=== PATIENT | male | born 1970 | race Caucasian/White ===

== ENCOUNTER 2024-12-17 20:08 | Inpatient (IN) | payer OTHER ==
[~2024-12-17] VITALS: Ht 172.7 cm; Wt 99.8 kg
[2024-12-17] MEDS: IV NS 0.9% 1,000 ML BAG IV ONE (22:00)
[2024-12-17 22:24] LABS: BASOPHILS % (AUTO) 0.3 % (0.0-2.0); EOSINOPHILS # (AUTO) 0.2 K/uL (0.0-0.7); EOSINOPHILS % (AUTO) 2.9 % (0.0-6.0); HEMATOCRIT 40 % (39-51); HEMOGLOBIN 13.8 g/dL (13.5-17.5); LYMPHOCYTES # (AUTO) 1.8 K/uL (0.8-4.8); LYMPHOCYTES % (AUTO) 21.6 % (20.0-44.0); MEAN CORPUSCULAR HEMOGLOBIN 34 PG (26.0-33.0); MEAN CORPUSCULAR HGB CONC 35 g/dl (31.0-36.0); MEAN CORPUSCULAR VOLUME 99 fL (80-96); MONOCYTES # (AUTO) 0.9 K/uL (0.1-1.30); MONOCYTES % (AUTO) 11.1 % (2.0-12.0); NEUTROPHILS # (AUTO) 5.3 K/uL (1.8-8.9); NEUTROPHILS % (AUTO) 64.1 % (43.0-81.0); PLATELET COUNT (AUTO) 168 K/uL (150-450); RED BLOOD CELL COUNT(AUTO) 4.03 MIL/uL (4.5-6.0); RED CELL DISTRIBUTION WIDTH 14.2 % (11.5-15.0); WHITE BLOOD COUNT (AUTO) 8.2 K/uL (4.3-11.0)
[2024-12-17 22:27] LABS: SITE, VBG Other; VBG BASE EXCESS -0.1 mmol/L (-2.0-3.0); VBG COHb 2.3 % (0.5-1.5); VBG HCO3 23.9 mmol/L (22.0-29.0); VBG MetHb 0.2 % (0.5-1.5); VBG O2Hb 79.1 % (0-79); VBG OXYGEN SATURATION 81.1 % (60.0-85.0); VBG PCO2 37.2 mmHg (38.0-54.0); VBG PH 7.426 (7.320-7.430); VBG PO2 45.9 mmHg (23.0-48.0)
[2024-12-17 22:30] LABS: CALCIUM, SERUM 9.6 mg/dL (8.5-10.1); CREATININE 1.3 mg/dL (0.6-1.3); POTASSIUM 3.7 mmol/L (3.5-5.1)
[2024-12-17] MEDS: INSULIN REGULAR, HUMAN 100 UNIT/ML 10 ML VIAL IV ONE (22:30)
[2024-12-17] MEDS ORDERED: VANCOMYCIN 1 GM /D5W 250 ML PB IV ONE (22:30)
[2024-12-17] MEDS ORDERED: INSULIN REGULAR, HUMAN 100 UNIT/ML 10 ML VIAL ONE (22:31)
[2024-12-17] MEDS: VANCOMYCIN 1 GM in IV D5W 250 ML IV ONE (22:37)
[2024-12-17] MEDS ORDERED: MORPHINE SULFATE INJ 2 MG/ML DISP.SYRIN ONE (23:21)
[2024-12-17] MEDS: MORPHINE SULFATE INJ 2 MG/ML DISP.SYRIN IV ONE (23:27)
[2024-12-17 23:30] LABS: APPEARANCE,URINE CLEAR (CLEAR); BILIRUBIN,URINE NEGATIVE (NEGATIVE); BLOOD, URINE NEGATIVE Ery/uL (NEGATIVE); COLOR,URINE YELLOW (YELLOW); KETONES,URINE NEGATIVE (NEGATIVE); LEUKOCYTE ESTERASE ,URINE NEGATIVE (NEGATIVE); NITRITE, URINE NEGATIVE (NEGATIVE); PH,URINE 5.5 (5.0-8.0); PROTEIN,URINE NEGATIVE (NEGATIVE); UGLUCOSE 3+ mg/dL (NEGATIVE); UROBILINOGEN,URINE 0.2 EU/dL (0.2)
[2024-12-17 23:54] LABS: ADD URINE CULTURE NO; BACTERIA,URINE Few /HPF (None Seen); RBC,URINE 0-2 /HPF (0-2); SQUAMOUS EPITHELIAL CELL,UR Few /HPF (None Seen); WBC,URINE 0-2 /HPF (0-3)
[2024-12-18] VITALS (7 sets, daily range): BP systolic 129–146; BP diastolic 81–99; TEMP 97.9–98.2; O2SAT 96–98
[2024-12-18] MEDS ORDERED: ACETAMINOPHEN 325 MG TABLET PO PRN (01:00)
[2024-12-18] MEDS ORDERED: DEXTROSE 50%-WATER 50 ML DISP.SYRIN IV PRN (01:00)
[2024-12-18] MEDS ORDERED: ONDANSETRON HCL/PF 4 MG/2 ML VIAL IVP PRN (01:00)
[2024-12-18] MEDS: BLOOD SUGAR DIAGNOSTIC 1 EACH STRIP IN SCH (01:00)
[2024-12-18] MEDS: ENOXAPARIN SODIUM 40 MG/0.4 ML DISP.SYRIN SQ SCH (01:00)
[2024-12-18] MEDS: IV NS 0.9% 1,000 ML IV PRN (01:55)
[2024-12-18] MEDS ORDERED: ENOXAPARIN SODIUM 40 MG/0.4 ML DISP.SYRIN SQ ONE (01:58)
[2024-12-18] MEDS: INSULIN GLARGINE, 100 UNIT/ML CARTRIDGE SQ SCH ×2 (03:05→21:53)
[2024-12-18] MEDS ORDERED: DIAZEPAM 5 MG TABLET PO PRN ×2 (05:00→06:00)
[2024-12-18] MEDS: MORPHINE SULFATE INJ 2 MG/ML DISP.SYRIN IV PRN (05:11)
[2024-12-18] MEDS: INSULIN REGULAR, HUMAN 100 UNIT/ML 3 ML VIAL SQ PRN (06:34)
[2024-12-18] MEDS ORDERED: METF-442 PO (09:05)
[2024-12-18] MEDS ORDERED: INSU100I30 SQ (09:05)
[2024-12-18] MEDS ORDERED: PREG200C PO (09:05)
[2024-12-18] MEDS ORDERED: OMEP40CA21 PO (09:05)
[2024-12-18] MEDS ORDERED: VERA120C10 PO (09:05)
[2024-12-18] MEDS ORDERED: ATOR80TA PO (09:05)
[2024-12-18] MEDS ORDERED: CLON0.1T PO (09:05)
[2024-12-18] MEDS ORDERED: MULT-594 PO (09:05)
[2024-12-18] MEDS ORDERED: METH-649 PO (09:05)
[2024-12-18] MEDS ORDERED: ATEN100T PO (09:05)
[2024-12-18] MEDS ORDERED: TRAZ-182 PO (09:05)
[2024-12-18] MEDS ORDERED: INSU100I4 SQ (09:05)
[2024-12-18] MEDS ORDERED: DULO60CA45 PO (09:05)
[2024-12-18] MEDS ORDERED: DIAZ10TA4 PO (09:05)
[2024-12-18] MEDS: MUPIROCIN OINT 2% 22 GM TUBE TP SCH (11:27)
[2024-12-18] MEDS: NEOMY SULF/BACITRAC ZN/POLY 15 GM TUBE TP SCH (11:27)
[2024-12-18] MEDS ORDERED: TRAZODONE 50 MG TABLET PO PRN (14:00)
[2024-12-18] MEDS ORDERED: CLONIDINE HCL 0.1 MG TABLET PO PRN (14:00)
[2024-12-18] MEDS: CEFTRIAXONE 2 G in IV D5W 100 ML IV SCH (15:00)
[2024-12-18] MEDS: VANCOMYCIN 1 GM in IV D5W 250ml IV SCH (15:34)
[2024-12-18] MEDS: PREGABALIN 100 MG CAPSULE PO SCH (16:48)
[2024-12-18] MEDS: METHOCARBAMOL (750MG) 750 MG TABLET PO SCH (16:49)
[2024-12-18] MEDS: DIAZEPAM 5 MG TABLET PO SCH (16:49)
[2024-12-18] MEDS: DULOXETINE HCL 30 MG CAPSULE.DR PO ONE (17:38)
[2024-12-19 06:33] LABS: BASOPHILS % (AUTO) 0.4 % (0.0-2.0); HEMATOCRIT 44 % (39-51); HEMOGLOBIN 14.8 g/dL (13.5-17.5); LYMPHOCYTES % (AUTO) 26.3 % (20.0-44.0); MEAN CORPUSCULAR HEMOGLOBIN 33 PG (26.0-33.0); MEAN CORPUSCULAR HGB CONC 34 g/dl (31.0-36.0); MEAN CORPUSCULAR VOLUME 99 fL (80-96); MONOCYTES % (AUTO) 10.4 % (2.0-12.0); NEUTROPHILS % (AUTO) 57.9 % (43.0-81.0); PLATELET COUNT (AUTO) 150 K/uL (150-450); RED BLOOD CELL COUNT(AUTO) 4.46 MIL/uL (4.5-6.0); RED CELL DISTRIBUTION WIDTH 14.1 % (11.5-15.0); WHITE BLOOD COUNT (AUTO) 6.6 K/uL (4.3-11.0)
[2024-12-19 06:34] LABS: EOSINOPHILS # (AUTO) 0.3 K/uL (0.0-0.7); LYMPHOCYTES # (AUTO) 1.7 K/uL (0.8-4.8); MONOCYTES # (AUTO) 0.7 K/uL (0.1-1.30); NEUTROPHILS # (AUTO) 3.8 K/uL (1.8-8.9)
[2024-12-19 07:05] LABS: CALCIUM, SERUM 8.8 mg/dL (8.5-10.1); CREATININE 0.9 mg/dL (0.6-1.3); MAGNESIUM 1.3 mg/dL (1.8-2.4); POTASSIUM 3.5 mmol/L (3.5-5.1)
[2024-12-19 08:00] VITALS: BP 150/95; TEMP 97.7; O2SAT 97
[2024-12-19] MEDS: VERAPAMIL SR 120 MG TABLET.SA PO SCH (09:00)
[2024-12-19] MEDS: ATORVASTATIN 40 MG TABLET PO SCH (09:00)
[2024-12-19] MEDS: PANTOPRAZOLE 40 MG TABLET.DR PO SCH (09:00)
[2024-12-19] MEDS: ATENOLOL 50 MG TABLET PO SCH (09:00)
[2024-12-19] MEDS: MULTIVITAMINS,THERAGRAN 1 UDTAB TABLET PO SCH (09:00)
[2024-12-19] MEDS: DULOXETINE HCL 30 MG CAPSULE.DR PO SCH (09:00)
[2024-12-19] MEDS: INSULIN GLARGINE, 100 UNIT/ML CARTRIDGE SQ SCH (09:30)
[2024-12-19] MEDS: Magnesium 1GM/D5W 100ML PREMIX 100 ML IV SCH (11:11)
[2024-12-19] MEDS ORDERED: BUPIVACAINE MPF 0.5% W/EPI INJ 30 ML VIAL ONE (12:48)
[2024-12-19] MEDS ORDERED: BUPIVACAINE 0.5 % PF 150 MG/30 ML VIAL ONE (12:48)
[2024-12-19] MEDS ORDERED: LIDOCAINE 1%-EPI 1:100,000 20 ML VIAL ONE (12:48)
[2024-12-19] MEDS ORDERED: ANESTHESIA TRAY IN PYXIS 1 EA TRAY MC ONE (12:48)
[2024-12-19] MEDS ORDERED: LIDOCAINE HCL/MPF 1% 30 ML VIAL IJ ONE (12:49)
[2024-12-19] MEDS ORDERED: ROCURONIUM BROMIDE 50 MG/5 ML ONE (13:53)
[2024-12-19] MEDS ORDERED: FENTANYL PF 100MCG/2ML AMPUL ONE (13:53)
[2024-12-19] MEDS ORDERED: MIDAZOLAM HCL 2 MG/2ML VIAL ONE (13:59)
[2024-12-19] MEDS ORDERED: BACITRACIN ZINC OINT (15 GM) 15 GM TUBE TP ONE (14:28)
[2024-12-19 16:00] VITALS: BP 164/96; TEMP 98.1; O2SAT 97
[2024-12-19] MEDS ORDERED: DOXY-326 PO (16:33)
[2024-12-19] MEDS ORDERED: AMOX-430 PO (16:33)
== END 2024-12-19 17:30 | disposition home or self-care (01) | DRG 623 ==
LOC: ER 20:13 → TELE 12-18 02:03 → MED 12-18 02:31
PROC: 0HRMXK4 Replacement of Right Foot Skin with Nonautologous Tissue Substitute, Partial Thickness, External Approach (ICD-10-PCS; 2024-12-19)
PROC: 0JBQ0ZZ Excision of Right Foot Subcutaneous Tissue and Fascia, Open Approach (ICD-10-PCS; principal; 2024-12-19 14:00)
DX: E11.621 Type 2 diabetes mellitus with foot ulcer (principal); E87.1 Hypo-osmolality and hyponatremia; L03.031 Cellulitis of right toe; L97.519 Non-pressure chronic ulcer of other part of right foot with unspecified severity; I10 Essential (primary) hypertension; E11.40 Type 2 diabetes mellitus with diabetic neuropathy, unspecified; E11.65 Type 2 diabetes mellitus with hyperglycemia; F43.10 Post-traumatic stress disorder, unspecified; F41.9 Anxiety disorder, unspecified; Z88.8 Allergy status to other drugs, medicaments and biological substances
CPT/HCPCS: 36415; 71045-TC; 73660-TC; 80048-TC; 80061-TC; 81001; 82010-TC; 82803-TC; 82962-TC; 83735-TC; 84100-TC; 85025-TC; 85652-TC; 86140-TC; 86850-TC; 87081-TC; A4223; A6403; G0378; J0690; J0696; J1650; J1815; J2250; J2270; J2704; J3010; J3370; J3475; J3490; J7030; J7060

== ENCOUNTER 2024-12-24 16:56 | Inpatient (IN) | payer OTHER ==
[~2024-12-24] VITALS: Ht 172.7 cm; Wt 106.1 kg
[~2024-12-24 16:56] MED LIST: AMOX-430 PO; ATEN100T PO; ATOR80TA PO; CLON0.1T PO; DIAZ10TA4 PO; DOXY-326 PO; DULO60CA45 PO; INSU100I30 SQ; INSU100I4 SQ; METF-442 PO; METH-649 PO; MULT-594 PO; OMEP40CA21 PO; PREG200C PO; TRAZ-182 PO; VERA120C10 PO
[2024-12-24] MEDS ORDERED: ACETAMINOPHEN 325 MG TABLET PO PRN (19:30)
[2024-12-24] MEDS ORDERED: ONDANSETRON HCL/PF 4 MG/2 ML VIAL IVP PRN (19:30)
[2024-12-24] MEDS ORDERED: DEXTROSE 50%-WATER 50 ML DISP.SYRIN IV PRN (19:30)
[2024-12-24] MEDS ORDERED: TRAZODONE 50 MG TABLET PO PRN (19:30)
[2024-12-24] MEDS: INSULIN GLARGINE, 100 UNIT/ML CARTRIDGE SQ SCH (19:30)
[2024-12-24] MEDS ORDERED: VANCOMYCIN 1 GM /D5W 250 ML PB IV ONE (19:56)
[2024-12-24] MEDS ORDERED: DIAZEPAM 5 MG TABLET ONE (19:57)
[2024-12-24 20:02] LABS: BASOPHILS # (AUTO) 0.1 K/uL (0.0-0.2); BASOPHILS % (AUTO) 0.8 % (0.0-2.0); EOSINOPHILS # (AUTO) 0.4 K/uL (0.0-0.7); EOSINOPHILS % (AUTO) 4.9 % (0.0-6.0); HEMATOCRIT 45 % (39-51); HEMOGLOBIN 14.9 g/dL (13.5-17.5); LYMPHOCYTES # (AUTO) 1.5 K/uL (0.8-4.8); LYMPHOCYTES % (AUTO) 20.4 % (20.0-44.0); MEAN CORPUSCULAR HEMOGLOBIN 33 PG (26.0-33.0); MEAN CORPUSCULAR HGB CONC 33 g/dl (31.0-36.0); MEAN CORPUSCULAR VOLUME 100 fL (80-96); MONOCYTES # (AUTO) 0.5 K/uL (0.1-1.30); MONOCYTES % (AUTO) 7.1 % (2.0-12.0); NEUTROPHILS % (AUTO) 66.8 % (43.0-81.0); PLATELET COUNT (AUTO) 208 K/uL (150-450); RED BLOOD CELL COUNT(AUTO) 4.51 MIL/uL (4.5-6.0); RED CELL DISTRIBUTION WIDTH 14.1 % (11.5-15.0); WHITE BLOOD COUNT (AUTO) 7.5 K/uL (4.3-11.0)
[2024-12-24] MEDS: VANCOMYCIN 1 GM in IV D5W 250 ML IV ONE (20:04)
[2024-12-24] MEDS: DIAZEPAM 5 MG TABLET PO ONE (20:04)
[2024-12-24 20:14] LABS: CALCIUM, SERUM 9.6 mg/dL (8.5-10.1); CREATININE 1.1 mg/dL (0.6-1.3); POTASSIUM 4.4 mmol/L (3.5-5.1)
[2024-12-24 20:15] LABS: LACTIC ACID 1.7 mmol/L (0.4-2.0)
[2024-12-24 20:19] LABS: ALBUMIN 4.4 g/dL (3.4-5.0); BILIRUBIN,DIRECT 0.1 mg/dL (0.0-0.2); BILIRUBIN,TOTAL 0.5 mg/dL (0.2-1.0); TOTAL PROTEIN, SERUM 8.6 g/dL (6.4-8.2)
[2024-12-24] MEDS ORDERED: HEPARIN SODIUM, PORCINE 5000 UNITS/1 ML VIAL ONE (21:33)
[2024-12-24] MEDS: HEPARIN SODIUM, PORCINE 5000 UNITS/1 ML VIAL SQ SCH (21:42)
[2024-12-24] MEDS: VANCOMYCIN HCL 1.25 GM in IV D5W 250 ML IV ONE (22:18)
[2024-12-24 22:23] VITALS: BP 143/89; TEMP 97.7; O2SAT 98
[2024-12-24 22:30] VITALS: BP 143/89; TEMP 97.7; O2SAT 98
[2024-12-24] MEDS: BLOOD SUGAR DIAGNOSTIC 1 EACH STRIP VI SCH (23:59)
[2024-12-25] MEDS: PREGABALIN 100 MG CAPSULE PO SCH ×2 (00:01→09:00)
[2024-12-25] MEDS: *INSULIN REGULAR(HUMULIN R)HUM 100 UNIT/ML VIAL SQ PRN (00:10)
[2024-12-25] MEDS: MORPHINE SULFATE INJ 2 MG/ML DISP.SYRIN IV PRN (00:12)
[2024-12-25 08:00] VITALS: BP 166/98; TEMP 98.2; O2SAT 98
[2024-12-25 08:01] LABS: ALBUMIN 3.9 g/dL (3.4-5.0); BILIRUBIN,TOTAL 0.4 mg/dL (0.2-1.0); CALCIUM, SERUM 9.7 mg/dL (8.5-10.1); CREATININE 0.9 mg/dL (0.6-1.3); PHOSPHORUS 3.3 mg/dL (2.5-4.9); POTASSIUM 3.9 mmol/L (3.5-5.1); TOTAL PROTEIN, SERUM 7.7 g/dL (6.4-8.2)
[2024-12-25 08:07] LABS: BASOPHILS % (AUTO) 0.8 % (0.0-2.0); EOSINOPHILS # (AUTO) 0.5 K/uL (0.0-0.7); EOSINOPHILS % (AUTO) 7.9 % (0.0-6.0); HEMATOCRIT 45 % (39-51); LYMPHOCYTES # (AUTO) 1.6 K/uL (0.8-4.8); LYMPHOCYTES % (AUTO) 26.4 % (20.0-44.0); MEAN CORPUSCULAR HEMOGLOBIN 33 PG (26.0-33.0); MEAN CORPUSCULAR HGB CONC 33 g/dl (31.0-36.0); MEAN CORPUSCULAR VOLUME 99 fL (80-96); MONOCYTES # (AUTO) 0.7 K/uL (0.1-1.30); MONOCYTES % (AUTO) 11.6 % (2.0-12.0); NEUTROPHILS # (AUTO) 3.3 K/uL (1.8-8.9); NEUTROPHILS % (AUTO) 53.3 % (43.0-81.0); PLATELET COUNT (AUTO) 211 K/uL (150-450); RED CELL DISTRIBUTION WIDTH 14.2 % (11.5-15.0); WHITE BLOOD COUNT (AUTO) 6.1 K/uL (4.3-11.0)
[2024-12-25] MEDS: VERAPAMIL SR 120 MG TABLET.SA PO SCH (09:08)
[2024-12-25] MEDS: DULOXETINE HCL 30 MG CAPSULE.DR PO SCH (09:08)
[2024-12-25] MEDS: DIAZEPAM 5 MG TABLET PO SCH (09:09)
[2024-12-25] MEDS: ATENOLOL 50 MG TABLET PO SCH (09:10)
[2024-12-25] MEDS: ATORVASTATIN 40 MG TABLET PO SCH (09:10)
[2024-12-25] MEDS: MUPIROCIN OINT 2% 22 GM TUBE TP SCH (10:43)
[2024-12-25] MEDS: VANCOMYCIN HCL 1.25 GM in IV D5W 250 ML IV SCH (10:43)
[2024-12-25 16:00] VITALS: BP 145/100; TEMP 98.4; O2SAT 96
[2024-12-25] MEDS: INSULIN REGULAR, HUMAN 100 UNIT/ML 3 ML VIAL SQ PRN (17:56)
[2024-12-25 20:00] VITALS: BP 108/76; TEMP 97.9; O2SAT 96
[2024-12-26 08:00] VITALS: BP 183/84; TEMP 98.2; O2SAT 98
[2024-12-26 08:51] LABS: CALCIUM, SERUM 8.6 mg/dL (8.5-10.1); CREATININE 0.8 mg/dL (0.6-1.3); POTASSIUM 3.7 mmol/L (3.5-5.1)
[2024-12-26] MEDS: FLUCONAZOLE (100 MG) 100 MG TABLET PO ONE (14:51)
[2024-12-26] MEDS: HYDROMORPHONE 1 MG/1 ML DISP.SYRIN IV PRN (14:51)
[2024-12-26 16:00] VITALS: BP 147/97; TEMP 98.2; O2SAT 98
[2024-12-26] MEDS: HYDROCORTISONE OINT 1% 28.35 GM TUBE TP SCH (16:58)
[2024-12-26] MEDS: CLOTRIMAZOLE 1% 15 GM TUBE TP SCH (16:59)
[2024-12-26] MEDS: METHOCARBAMOL (750MG) 750 MG TABLET PO SCH (17:49)
[2024-12-26] MEDS: HYDROCODONE/APAP 10/325MG TABLET PO PRN (19:58)
[2024-12-26 20:00] VITALS: BP_SYST 154; BP_SYST 168; BP_DIAS 87; BP_DIAS 91; TEMP 98.2; O2SAT 96
[2024-12-26 22:00] VITALS: BP 154/91
[2024-12-27 07:45] LABS: BASOPHILS # (AUTO) 0.1 K/uL (0.0-0.2); BASOPHILS % (AUTO) 0.9 % (0.0-2.0); EOSINOPHILS # (AUTO) 0.4 K/uL (0.0-0.7); EOSINOPHILS % (AUTO) 6.4 % (0.0-6.0); HEMATOCRIT 45 % (39-51); HEMOGLOBIN 14.9 g/dL (13.5-17.5); LYMPHOCYTES # (AUTO) 1.9 K/uL (0.8-4.8); LYMPHOCYTES % (AUTO) 30.6 % (20.0-44.0); MEAN CORPUSCULAR HEMOGLOBIN 33 PG (26.0-33.0); MEAN CORPUSCULAR HGB CONC 34 g/dl (31.0-36.0); MEAN CORPUSCULAR VOLUME 97 fL (80-96); MONOCYTES # (AUTO) 0.6 K/uL (0.1-1.30); MONOCYTES % (AUTO) 9.7 % (2.0-12.0); NEUTROPHILS # (AUTO) 3.2 K/uL (1.8-8.9); NEUTROPHILS % (AUTO) 52.4 % (43.0-81.0); PLATELET COUNT (AUTO) 196 K/uL (150-450); RED BLOOD CELL COUNT(AUTO) 4.58 MIL/uL (4.5-6.0); RED CELL DISTRIBUTION WIDTH 14.1 % (11.5-15.0); WHITE BLOOD COUNT (AUTO) 6.2 K/uL (4.3-11.0)
[2024-12-27 08:31] VITALS: BP 158/90; TEMP 98.6; O2SAT 100
[2024-12-27 09:38] LABS: CALCIUM, SERUM 9.2 mg/dL (8.5-10.1); CREATININE 0.8 mg/dL (0.6-1.3); MAGNESIUM 2.2 mg/dL (1.8-2.4); PHOSPHORUS 3.5 mg/dL (2.5-4.9); POTASSIUM 4.6 mmol/L (3.5-5.1)
[2024-12-27 16:00] VITALS: BP 157/78; TEMP 98.3; O2SAT 97
[2024-12-28 08:00] VITALS: BP 159/89; TEMP 97.9; O2SAT 95
[2024-12-28 09:07] LABS: CALCIUM, SERUM 9.6 mg/dL (8.5-10.1); CREATININE 1.1 mg/dL (0.6-1.3); MAGNESIUM 1.7 mg/dL (1.8-2.4); PHOSPHORUS 3.5 mg/dL (2.5-4.9); POTASSIUM 4.5 mmol/L (3.5-5.1)
[2024-12-28 09:10] LABS: BASOPHILS # (AUTO) 0.1 K/uL (0.0-0.2); BASOPHILS % (AUTO) 1.3 % (0.0-2.0); EOSINOPHILS # (AUTO) 0.4 K/uL (0.0-0.7); EOSINOPHILS % (AUTO) 5.4 % (0.0-6.0); HEMATOCRIT 41 % (39-51); HEMOGLOBIN 13.9 g/dL (13.5-17.5); LYMPHOCYTES # (AUTO) 1.9 K/uL (0.8-4.8); LYMPHOCYTES % (AUTO) 27.8 % (20.0-44.0); MEAN CORPUSCULAR HEMOGLOBIN 33 PG (26.0-33.0); MEAN CORPUSCULAR HGB CONC 34 g/dl (31.0-36.0); MEAN CORPUSCULAR VOLUME 97 fL (80-96); MONOCYTES # (AUTO) 0.7 K/uL (0.1-1.30); MONOCYTES % (AUTO) 10.6 % (2.0-12.0); NEUTROPHILS # (AUTO) 3.8 K/uL (1.8-8.9); NEUTROPHILS % (AUTO) 54.9 % (43.0-81.0); PLATELET COUNT (AUTO) 205 K/uL (150-450); RED BLOOD CELL COUNT(AUTO) 4.18 MIL/uL (4.5-6.0); RED CELL DISTRIBUTION WIDTH 13.9 % (11.5-15.0)
[2024-12-28] MEDS ORDERED: HYDR-3980 PO (13:15)
[2024-12-28] MEDS ORDERED: CLOT15CR35 TP (13:15)
[2024-12-28] MEDS ORDERED: DOXY-326 PO (13:15)
[2024-12-28 16:00] VITALS: BP 141/92; TEMP 98.4; O2SAT 97
== END 2024-12-28 18:30 | disposition home or self-care (01) | DRG 638 ==
LOC: ER 17:02 → MED 22:06
PROVIDERS: ADMIT Internal Medicine; ATTEND Nurse Practitioner Acute Care
DX: E11.621 Type 2 diabetes mellitus with foot ulcer (principal); R78.81 Bacteremia; F41.9 Anxiety disorder, unspecified; L03.031 Cellulitis of right toe; F43.10 Post-traumatic stress disorder, unspecified; I10 Essential (primary) hypertension; E11.40 Type 2 diabetes mellitus with diabetic neuropathy, unspecified; Z88.8 Allergy status to other drugs, medicaments and biological substances; Z79.84 Long term (current) use of oral hypoglycemic drugs; Z79.899 Other long term (current) drug therapy; Z79.4 Long term (current) use of insulin; M19.90 Unspecified osteoarthritis, unspecified site; N48.1 Balanitis; L97.519 Non-pressure chronic ulcer of other part of right foot with unspecified severity; B95.8 Unspecified staphylococcus as the cause of diseases classified elsewhere; B95.2 Enterococcus as the cause of diseases classified elsewhere; E11.65 Type 2 diabetes mellitus with hyperglycemia; M51.369 Other intervertebral disc degeneration, lumbar region without mention of lumbar back pain or lower extremity pain; M48.061 Spinal stenosis, lumbar region without neurogenic claudication
CPT/HCPCS: 36415; 72148-TC; 73718-TC; 80048-TC; 80053-TC; 80076-TC; 80202-TC; 82962-TC; 83605-TC; 83735-TC; 84100-TC; 85025-TC; 87040-TC; A4217; A4223; A6403; G0378; J1171; J1644; J1815; J2270; J3370; J7050; J7060